=== PATIENT | female | born 1980 | race Caucasian/White ===

== ENCOUNTER 2016-12-08 08:18 | Emergency (ER) | payer OTHER ==
[2016-12-08 08:35] VITALS: BP 111/64
[2016-12-08] MEDS ORDERED: CLIN-44 PO (09:04)
--- NOTE | 2016-12-08 09:05 | PHYS DOC ---
Past Medical History Past Medical History: No Pertinent History Past Surgical History: TURP Additional Past Surgical Histo: L great toe Additional Information: smokes non-nicotine vapor pen Alcohol Use: Occasionally Drug Use: None Adult General Chief Complaint Chief Complaint: FACE PROBLEM HPI HPI Patient is a 36 year old female who presents with left upper eyelid swelling for 6 days. She states that it began with an itch at the lateral canthus and has increased in swelling. She was seen at an urgent care yesterday and prescribed Augmentin and erythromycin ophthalmic ointment. She was told to go to the hospital if the swelling got worse within 24 hours. She reports that the swelling has extended laterally. She denies any change in her vision. She has not had redness of the eye or drainage from the eye. She does not have pain with ocular movement or photophobia. She usually wears contact lenses but has thrown away her most recent pair, as well as her contact lens case and her eye makeup. Her PCP is Dr. Carol Clemente. Review of Systems Review of Systems Constitutional: Denies fever or chills [] Eyes: Denies change in visual acuity, redness, or eye pain. Reports left upper eyelid swelling. HENT: Denies nasal congestion or sore throat [] Integument: Denies rash or skin lesions [] Neurologic: Denies headache, focal weakness or sensory changes [] Allergies Allergies Allergies Coded Allergies Type Severity Reaction Last Updated Verified No Known Drug Allergies 12/08/16 No Physical Exam Physical Exam Constitutional: Well developed, well nourished, no acute distress, non-toxic appearance. [] HENT: Normocephalic, atraumatic, bilateral external ears normal, oropharynx moist, no oral exudates, nose normal. [] Eyes: PERRLA, EOMI, conjunctiva normal, no discharge. Left upper eyelid edema and mild erythema. There is no pain with eye movement. There is no conjunctival injection. Visual acuity: OS 20/25, OD 20/20, OU 20/13. Skin: Warm, dry, no rash. [] Neurologic: Alert and oriented X 3, normal motor function, normal sensory function, no focal deficits noted. [] Psychologic: Affect normal, judgement normal, mood normal. [] Current Patient Data Vital Signs Vital Signs Date Time Temp Pulse Resp B/P Pulse Ox O2 Delivery O2 Flow Rate FiO2 12/08/16 08:35 99.2 103 18 95 Room Air 99.2 EKG EKG [] Radiology/Procedures Radiology/Procedures [] Course & Med Decision Making Course & Med Decision Making Pertinent Labs and Imaging studies reviewed. (See chart for details) The patient presents with left upper eyelid swelling. She does not have s/s of orbital cellulitis. She has been prescribed Augmentin and erythromycin ophthalmic ointment. She is instructed to discontinue the Augmentin and begin taking clindamycin. She may use the ointment or not, but there does not appear to be involvement of the eye, so it will likely be unhelpful. She is instructed to wear her glasses until the infection is completely cleared and then use a new pair of contact lenses. She is given contact information for ophthalmology for follow up. Return precautions were discussed. She verbalizes understanding and agrees with plan. Dragon Disclaimer Dragon Disclaimer This electronic medical record was generated, in whole or in part, using a voice recognition dictation system. Departure Departure Impression: Primary Impression: Periorbital cellulitis of left eye Disposition: HOME, SELF-CARE Condition: STABLE Referrals: OSVALDO ROSSI MD Patient Instructions: Periorbital Cellulitis Additional Instructions: You have an infection of the upper eyelid that does not involve the eye itself. Please stop taking the previously prescribed antibiotic pills and begin taking the new prescription today. Please follow up with the eye doctor listed below if you have any concerns. Return to the emergency department if you have pain with movement of the eye, fever, worsening of the swelling, change in your vision, or other new or concerning symptoms. Scripts Clindamycin Hcl 150 Mg Capsule3 Cap PO QID 10 Days Prov:JOE DIEGO 12/08/16 JOE DIEGO Dec 08, 2016 09:05
== END 2016-12-08 09:11 | disposition home or self-care (01) ==
LOC: ER 08:18
DX: L03.213 Periorbital cellulitis (principal)
CPT/HCPCS: 99283

== ENCOUNTER → 2019-05-18 | Outpatient (CLI) | payer OTHER ==
[~2019-05-18] MED LIST: CLIN150C14 PO
--- NOTE | 2019-05-18 16:45 | KCIC ---
Bilateral digital screening mammograms with 3-D tomosynthesis: Reason for examination: Routine baseline screening. Bilateral mammograms in CC and oblique projections were obtained with 2-D imaging and 3-D tomosynthesis imaging on a Siemens Inspiration unit and reviewed on the workstation. Interpretation was made with the benefit of CAD. The skin and nipples show no abnormalities. No abnormal axillary lymph nodes are seen. The breast parenchyma is heterogeneously dense. (Breast density: Category C.) There are no dominant masses, suspicious calcifications or architectural distortion. Impression: No evidence of malignancy. Recommend routine screening. Your patient's mammogram demonstrates that she has dense breast tissue (breast density category C or D), which could hide abnormalities, and if she has other risk factors for breast cancer that have been identified, she might benefit from supplemental screening tests that may be suggested by you as her ordering physician. Dense breast tissue, in and of itself, is a relatively common condition. Therefore, this information is not provided to cause undue concern, but rather to raise your awareness and to promote discussion with your patient regarding the presence of other risk factors, in addition to dense breast tissue. Your patient's mammography results will be sent to her. BI-RAD Category 1: Negative. "Our facility is accredited by the [employer] Mammography Program." This patient's information has been entered into a reminder system for the patient to be notified with the results of her examination and a target date for the next mammogram. Electronically signed by: Yudelka Young MD (05/18/2019 4:41 PM) [id number]
== END | disposition home or self-care (01) ==
LOC: KCIC MAMMO 15:09
PROVIDERS: ATTEND Family Medicine
DX: Z12.31 Encounter for screening mammogram for malignant neoplasm of breast (principal); N64.89 Other specified disorders of breast
CPT/HCPCS: 77063; 77067